=== PATIENT | female | born 1965 | race Caucasian/White ===

== ENCOUNTER 2020-10-22 22:10 | Emergency (ER) | payer BC, OTHER ==
[2020-10-22] MEDS ORDERED: CYCLOBENZAPRINE 10 MG (FLEXERIL) TAB PO STA (22:45)
--- NOTE | 2020-10-22 22:49 | ED Lower Extremity ---
General Chief Complaint: Lower Extremity Stated Complaint: LT SIDE HIP PAIN Nursing Triage Note: Pt brought in by ems complaining of left hip pain. Pt had no injury but states it has been going on for a while and worsened tonight Source: patient, EMS History of Present Illness Date Seen by Provider: Oct 22, 2020 Time Seen by Provider: 22:12 Initial Comments 55 yo female presenting from home by EMS with complaint of left hip and leg pain. She has been having pain in the left leg and hip for 1 week. She had imaging with her primary care provider and was told she had a very thin layer of padding in the hip joint. She has had increased pain after certain activities. She states that she does have some good days and some bad days. She was having a really good day earlier this week and had done extra walking on the treadmill and an effort to help lose weight. She knows that have the extra weight is contributing to her hip and leg pain. She has been under extra stress with multiple friends and family members dying this month. She also has been caring for grandchildren through foster care but have been taken away from been given back to the mother of the children on the of this month. But also that could have contributed to her stress. She had a cat that she had for 13 years the past for this month as well. In addition to all these things she has had this increased pain in her hip. Tonight she was having spasms to the point that she could not lift or move her left leg. She denies any fall or new injury. She has no loss of bowel or bladder control. Allergies and Home Medications Allergies Coded Allergies: erythromycin base (Verified Allergy, Unknown, 10/22/20) Home Medications Cyclobenzaprine HCl 5 Mg Tablet, 5 MG PO Q8H PRN for MUSCLE SPASMS Prescribed by: BROCK EDMONDS on 10/22/20 4933 Patient Home Medication List Home Medication List Reviewed: Yes Review of Systems Constitutional: No chills, No fever EENTM: no symptoms reported Respiratory: no symptoms reported Cardiovascular: no symptoms reported Gastrointestinal: no symptoms reported Genitourinary: no symptoms reported Musculoskeletal: see HPI Skin: No rash Psychiatric/Neurological: Denies Numbness; Other (spasms and muscle pain in left leg from hip down) Past Ixyemni-Qhmfjr-Dfhsko Hx Patient Social History Tobacco Use?: No Use of E-Cig and/or Vaping dev: No Substance use?: No Alcohol Use?: No Pt feels they are or have been: No Physical Exam Vital Signs Vital Signs - First Documented 10/22/20 22:24 Temp 36.3 Pulse 96 Resp 18 B/P (MAP) 135/76 (95) Pulse Ox 98 O2 Delivery Room Air Capillary Refill : Less Than 3 Seconds Height, Weight, BMI Height: '" Weight: lbs. oz. kg; BMI Method: General Appearance: moderate distress, obese HEENT: PERRL/EOMI, pharynx normal Neck: non-tender, supple Cardiovascular: normal peripheral pulses, regular rate, rhythm Respiratory: chest non-tender, lungs clear, normal breath sounds Hips: left hip non-tender, left hip limited range of motion (Limited range of motion in the left hip and leg due to pain and spasms. No pain with palpation) Neurologic/Tendon: normal sensation Neurologic/Psychiatric: alert, oriented x 3 Skin: normal color, warm/dry Progress/Results/Core Measures Results/Orders My Orders Orders - BROCK EDMONDS MD Cyclobenzaprine Tablet (Flexeril Tablet) (10/22/20 22:45) Vital Signs/I&O 10/22/20 10/22/20 22:24 23:45 Temp 36.3 36.3 Pulse 96 96 Resp 18 18 B/P (MAP) 135/76 (95) 135/76 (95) Pulse Ox 98 98 O2 Delivery Room Air Room Air Blood Pressure Mean: 95 Progress Progress Note #1: Progress Note After 30 minutes of examined talking with the patient she finally was agreeable to trying a low-dose muscle relaxer. Advised that I could prescribe tramadol as the lowest opiate as well. She finally was willing to take an oral muscle answer but refused injectable muscle relaxer. As Flexeril tramadol cannot be given together due to interactions we will try a dose of Flexeril here 5 mg p.o. and plan on discharging with baclofen 5 mg and tramadol. She has had no new injury or fall to indicate need for imaging. Progress Note #2: Time: 23:28 Progress Note pt reporting improved symptoms and moving leg and hip better without such severe pain and spasms. Will discharge home on flexeril. Pt refused taking an additional 5 mg dose of medicine as she continued to state that she was scared of taking medicines and what it would do to her. She did not want to lose control or feel like she was losing control of her body and mind. She felt like the 5 mg was tolerable and was slowly helping her leg and hip so she was comf ortable staying on that medicine. she refused the tramadol knowing it could interact with the cyclobenzaprine. Check back with Dr. Stack in the clinic about follow-up and possible physical therapy versus orthopedics referral. Departure Impression Primary Impression: Left hip pain Additional Impression: Muscle spasm of left lower extremity Disposition: HOME, SELF-CARE Condition: Improved Departure-Patient Inst. Decision time for Depature: 23:41 Referrals: CHALINO STACK MD (PCP/Family) Primary Care Physician Patient Instructions: Hip Pain ED, Muscle Spasm ED, Using Heat for Pain, Using Cold for Pain Add. Discharge Instructions: Try using the muscle relaxer for pain and spasms in leg. Continue with Acetaminophen and may add in Ibuprofen 400 mg every 4 hours as needed for pain/inflammation. Check back with Dr. Stack and if you continue to have worsening symptoms/problems then he may have you get an MRI or further testing. All discharge instructions reviewed with patient and/or family. Voiced understanding. Scripts Cyclobenzaprine HCl (Cyclobenzaprine HCl) 5 Mg Tablet 5 MG PO Q8H PRN for MUSCLE SPASMS for 15 Days, #45 TAB 0 Refills Prov: BROCK EDMONDS MD 10/22/20 BROCK EDMONDS MD Oct 22, 2020 22:49
[2020-10-22] MEDS ORDERED: CYCL5TAB PO (23:41)
[2020-10-22 23:45] VITALS: BP 135/76
== END 2020-10-23 00:20 | disposition home or self-care (01) ==
LOC: ER FS 22:18
DX: M25.552 Pain in left hip (principal); M62.838 Other muscle spasm; E66.9 Obesity, unspecified
CPT/HCPCS: 99283